=== PATIENT | male | born 1975 | race Caucasian/White ===

== ENCOUNTER 2017-06-04 08:52 | Inpatient (IN) | payer SELFPAY ==
[~2017-06-04] VITALS: Ht 162.6 cm; Wt 68.0 kg
[2017-06-04 10:09] LABS: BASOPHILS % 0.5 % (0.0-2.0); EOSINOPHILS % 1.6 % (0.0-5.0); HEMOGLOBIN. 15.4 g/dL (14.0-18.0); LYMPHOCYTES % 15.4 % (20.0-50.0); MEAN CORPUSCULAR HEMOGLOBIN 33.7 pg (28.0-32.0); MEAN CORPUSCULAR VOLUME 96.1 fL (80.0-94.0); MEAN PLATELET VOLUME 7.3 fl (7.4-10.4); MONOCYTES % 7.9 % (2.0-8.0); NEUTROPHILS % 74.6 % (40.0-76.0); PLATELET 223 x1000/uL (130-400); RED BLOOD CELL COUNT 4.57 mill/uL (4.7-6.1); RED CELL DISTRIBUTION WIDTH 13.8 % (11.6-14.6)
[2017-06-04 10:11] LABS: PROTHROMBIN TIME 10.3 sec (9.4-11.6)
[2017-06-04 10:20] LABS: CARBON DIOXIDE 28 mEq/L (21-32); CHLORIDE 97 mEq/L (98-107)
[2017-06-04 10:22] LABS: TROPONIN I < 0.02 ng/mL (0.00-0.04)
[2017-06-04] MEDS ORDERED: ASPIRIN 325MG EC TABLET PO ONE (10:30)
[2017-06-04] MEDS ORDERED: NITROGLYCERIN 0.4MG TABLET SL SL PRN (10:45)
[2017-06-04] MEDS ORDERED: KETOROLAC 15MG/ML VIAL IV PRN (10:45)
[2017-06-04] MEDS ORDERED: LORAZEPAM 2MG/ML CPJ IV PRN (10:45)
[2017-06-04] MEDS ORDERED: NA PHOS,M-B/NA PHOS,DI-BA ENEMA 118ML PR PRN (10:45)
[2017-06-04] MEDS ORDERED: ACETAMINOPHEN 325MG TABLET PO PRN (10:45)
[2017-06-04] MEDS ORDERED: DIPHENHYDRAMINE 50MG/ML VIAL IV PRN (10:45)
[2017-06-04] MEDS ORDERED: ONDANSETRON HCL 4MG/2ML VIAL IV PRN (10:45)
[2017-06-04 11:15] LABS: ETHANOL BLOOD < 10 mg/dL; HDL CHOLESTEROL 132 mg/dL (40-59); LDL CHOLESTEROL 74 mg/dL (5-100)
[2017-06-04 12:30] VITALS: BP 124/74
[2017-06-04] MEDS ORDERED: ASPIRIN 325MG EC TABLET PO SCH (13:00)
[2017-06-04] MEDS ORDERED: MVI, ADULT NO.1 10 ML, FOLIC ACID 1 MG, THIAMINE HCL 100 MG in SODIUM CHLORIDE 0.9% 1,0... IV SCH ×4 (14:00)
[2017-06-04] MEDS: SUCRALFATE 1 G/10 ML UDC PO SCH ×3 (14:25→21:19)
[2017-06-04] MEDS: FAMOTIDINE 20MG/2ML VIAL IV SCH ×2 (14:26→21:19)
[2017-06-04] MEDS: METOPROLOL TARTRATE 25MG TABLET PO SCH ×2 (14:27→21:19)
[2017-06-04] MEDS: ENOXAPARIN 40MG/0.4ML SYR SUBCUT SCH (14:28)
[2017-06-04 16:53] LABS: CREATINE KINASE 281 IU/L (39-308); TROPONIN I < 0.02 ng/mL (0.00-0.04)
[2017-06-04] MEDS ORDERED: ZOLPIDEM TARTRATE 5MG TABLET PO PRN (21:00)
[2017-06-04 21:22] VITALS: BP 116/72
[2017-06-05] VITALS: BP 119/80
[2017-06-05 01:12] LABS: CREATINE KINASE 246 IU/L (39-308); CREATINE KINASE MB FRACTION 2.2 ng/mL (0.5-3.6); TROPONIN I < 0.02 ng/mL (0.00-0.04)
[2017-06-05 04:00] VITALS: BP 104/68
[2017-06-05] MEDS: SUCRALFATE 1 G/10 ML UDC PO SCH ×2 (06:44→12:20)
[2017-06-05 08:04] VITALS: BP 107/71
[2017-06-05] MEDS ORDERED: ASPIRIN 325MG EC TABLET PO SCH (09:00)
[2017-06-05] MEDS: ENOXAPARIN 40MG/0.4ML SYR SUBCUT SCH (09:00)
[2017-06-05] MEDS: METOPROLOL TARTRATE 25MG TABLET PO SCH (09:00)
[2017-06-05] MEDS: FAMOTIDINE 20MG/2ML VIAL IV SCH (09:00)
[2017-06-05 11:29] VITALS: BP 120/72
[2017-06-05 12:00] VITALS: BP 110/73
== END 2017-06-05 13:20 | disposition home or self-care (01) | DRG 243 ==
LOC: ER 10:07 → 6WST 10:35 → ENRESERV 10:40 → 6WST 12:48
PROVIDERS: ADMIT Internal Medicine; ATTEND Internal Medicine
DX: K21.9 Gastro-esophageal reflux disease without esophagitis (principal); I24.9 Acute ischemic heart disease, unspecified; F10.10 Alcohol abuse, uncomplicated; F17.210 Nicotine dependence, cigarettes, uncomplicated
CPT/HCPCS: 36415; 71010; 80053; 80061; 82550; 82553; 83036; 83880; 84484; 85025; 85610; 93005; 93970; 99285; G0482; J1650; J3411; J3490; J7030